=== PATIENT | male | born 1985 | race Caucasian/White ===

== ENCOUNTER 2020-04-07 22:08 | Outpatient (REF) | payer OTHER, SELFPAY ==
[2020-04-13 11:25] LABS: SARS-CoV-2 Specimen Source Nasopharynx
[2020-04-13 11:26] LABS: SARS-CoV-2 RNA Undetected (Undetected)
== END 2020-04-07 22:28 ==
LOC: NCHCN 22:08
PROVIDERS: Visit Provider Physician Assistant
DX: J02.9 Acute pharyngitis, unspecified (principal)
CPT/HCPCS: U0003